=== PATIENT | male | born 1985 | race Caucasian/White ===

== ENCOUNTER 2020-07-21 18:32 | Emergency (ER) | payer OTHER, SELFPAY ==
[~2020-07-21] VITALS: Ht 170.2 cm; Wt 102.1 kg
[2020-07-21 18:34] VITALS: BP 152/88; Ht 170.2 cm; Wt 102.1 kg
== END 2020-07-21 19:40 | disposition home or self-care (01) ==
LOC: ED 18:32
DX: J02.9 Acute pharyngitis, unspecified (principal); R50.9 Fever, unspecified; M79.10 Myalgia, unspecified site; Z20.828 Contact with and (suspected) exposure to other viral communicable diseases
CPT/HCPCS: U0003-CS